=== PATIENT | female | born 1970 ===

== ENCOUNTER 2017-07-27 07:25 | Day surgery (SDC) | payer OTHER ==
[~2017-07-27 07:25] MED LIST: EPINEPHrine 1:1000 Nasal Sol(30mL) ONE; Lidocaine/Epinephrine 1% 1:100000 10 ML IJ ONE; ceFAZolin 1 gm in NS 1 GM/100 ML BAG IVPB ONE
[2017-07-27] MEDS ORDERED: Acetaminophen-Codeine 300/30 mg Tab PO PRN (08:40)
[2017-07-27] MEDS ORDERED: Dextrose 5%/0.45% NS 1,000 ML IV SCH (08:45)
[2017-07-27] MEDS ORDERED: Midazolam 2 MG/2 ML VIAL ONE (09:49)
[2017-07-27] MEDS ORDERED: Propofol 10 mg/ml Inj (20 ML) ONE (09:49)
[2017-07-27] MEDS ORDERED: Lactated Ringer's 1,000 ML IV ONE (09:50)
[2017-07-27] MEDS ORDERED: HYDROmorphone 0.5 mg/0.5 ml ISec IVP PRN (11:37)
[2017-07-27 12:47] VITALS: RESP 18
[2017-07-27 14:23] VITALS: BP 116/62; PULSE 89; TEMP 97.8; O2SAT 96
--- NOTE | 2017-07-27 22:35 | OP ---
PROCEDURE DATE: 07/27/2017 PREOPERATIVE DIAGNOSES: Sinusitis and large turbinates. POSTOPERATIVE DIAGNOSES: Sinusitis and large turbinates. PROCEDURE: Endoscopic bilateral maxillary antrostomy, endoscopic bilateral ethmoidectomy, endoscopic bilateral sphenoidotomy, endoscopic bilateral inferior turbinate reduction. SURGEON: Alberto Linares MD SIGNIFICANT FINDINGS: There were large turbinates and maxillary antrum stenosed on both sides, sinusitis changes noted in the ethmoid sinuses on both sides, sphenoid antrum stenosed on both sides. DESCRIPTION OF PROCEDURE: The patient was brought into the room, placed in supine position, anesthesia was initiated through an ET tube. Navigation was set up and used throughout the case in order to ensure that the skull base and orbit were not entered. Adrenaline-soaked pledgets were inserted into the nasal cavity, remained there for 5 minutes and removed. The patient was draped in the usual manner. A 0-degree scope was inserted into the nasal cavity. The inferior turbinates were noted to be enlarged and reduced in size using scissors going from inferior to superior, anterior to posterior direction on both sides; first on the right, then on the left. Bleeding was controlled using suction cautery on both sides. Attention was turned to the left. The middle turbinate was injected with lidocaine with epinephrine and medialized. The uncinate process was medialized using a Correll elevator and removed using forceps. A debrider was used to enter the ethmoid bulla inferomedially, going posteriorly to the basal lamella, superiorly and anteriorly until the ethmoid bulla was removed. The basal lamella was entered. Posterior ethmoid cells were entered and opened. The skull base was identified and followed anteriorly all the way to the area of the anterior ethmoid air cells. A curved suction hooked up to navigation was used to locate the maxillary antrum, which was noted to be stenosed and opened using forceps. The sphenoid antrum was also noted and opened using forceps. It was noted to be stenosed. Attention was turned to the other side. The middle turbinate was injected with lidocaine with epinephrine and medialized. The uncinate process was medialized using a Correll elevator and removed using forceps. A debrider was used to enter the ethmoid bulla inferomedially, going posteriorly to the basal lamella, then superiorly and anteriorly until the ethmoid bulla was removed. The basal lamella was entered. Posterior ethmoid cells were entered and opened. Skull base was identified and followed anteriorly all the way to the area of anterior ethmoid air cells. A curved suction hooked up to navigation was used to locate the maxillary antrum, which was noted to be stenosed and opened using forceps. The sphenoid antrum was also noted to be stenosed and opened using forceps. Bleeding was controlled on both sides using a suction cautery and adrenaline-soaked pledgets. Stents were placed. The patient was taken off anesthesia and taken to recovery room in a stable manner. Alberto Linares MD
== END 2017-07-27 14:22 | disposition home or self-care (01) ==
LOC: C.SDS 07:25
PROVIDERS: ATTEND Otolaryngology
DX: J34.3 Hypertrophy of nasal turbinates (principal); J32.2 Chronic ethmoidal sinusitis; E03.9 Hypothyroidism, unspecified
CPT/HCPCS: 30130; 31254; 31256; 31287; 88304; J0690; J1170; J2250; J2704; J3010; J7120

== ENCOUNTER 2017-08-04 19:27 | Emergency (ER) | payer OTHER ==
[2017-08-04 19:48] VITALS: O2SAT 97
--- NOTE | 2017-08-04 20:42 | C.PDOC ---
History Of Present Illness 47 year old female presents to the ER s/p sinus surgery on on 07/27/17 on augmentin and prednisone, presents to the ER with a complaint of left neck/ shoulder stiffness and pain after having a syncopal yesterday. Patient states she felt lightheaded and dizzy yesterday, with a pressure and numbness to the face; she then felt numbness come over her whole body, began having palpitations , and felt like her equilibrium was off balance. Patient reports she later was walking up some steps and had a brief episode of LOC that lasted less than a minute during which she hit her left shoulder. Today, patient woke up with stiffness to the left neck and left shoulder, and pain to the left shoulder. Patient notes since she has been on the medications she has not been feeling right. She feels as if her vision is blurry. Denies weakness, headache, nausea, or vomiting. Time Seen by Provider: 08/04/17 20:14 Chief Complaint (Nursing): Dizziness/Lightheaded History Per: Patient History/Exam Limitations: no limitations Onset/Duration Of Symptoms: Hrs Current Symptoms Are (Timing): Still Present Number Of Syncopal Episodes: 1 Activity At Onset Of Symptoms: Walking (up stairs) Associated Symptoms Preceding Syncopal Episode: Other ([place] off balance) Seizure Or Post-ictal Symptoms: None Fall Associated With With Symptoms: Yes, Positive Injury Recent travel outside of the [place]: No - Symptoms Of CVA Associated Symptoms: denies: Impaired Speech, Seizure Activity, New Vision Deficit(Left), New Vision Deficit(Right), Decreased Ability To Walk, New Confusion Past Medical History Reviewed: Historical Data, Nursing Documentation, Vital Signs Vital Signs: Last Vital Signs Temp 98.4 F 08/04/17 19:38 Pulse 79 08/04/17 19:38 Resp 20 08/04/17 19:38 BP 131/74 08/04/17 19:38 Pulse Ox 97 08/04/17 23:50 - Medical History PMH: Anemia (WAS ON IRON SUPPLEMENT-NO LONGER NEEDED), Gastritis, Hypothyroidism Surgical History: Endoscopy Family History: States: Unknown Family Hx - Social History Hx Alcohol Use: No Hx Substance Use: No Review Of Systems Constitutional: Negative for: Fever, Chills Gastrointestinal: Negative for: Nausea, Vomiting Musculoskeletal: Positive for: Neck Pain, Shoulder Pain Neurological: Negative for: Weakness, Headache, Dizziness Physical Exam - Physical Exam Appears: Non-toxic Skin: Warm, Dry Head: Atraumatic, Normacephalic Eye(s): bilateral: Normal Inspection, PERRL, EOMI Oral Mucosa: Moist Neck: Paracervical Tenderness (Left), Supple Chest: Symmetrical, No Tenderness Cardiovascular: Rhythm Regular Respiratory: Normal Breath Sounds, No Rales, No Rhonchi, No Wheezing Gastrointestinal/Abdominal: Soft, No Tenderness Back: No Vertebral Tenderness, Paraspinal Tenderness (Left trapezius and left scapula) Extremity: Normal ROM (x4), No Deformity, No Swelling, Other (Ecchymosis and tenderness to left proximal humerous.) Pulses: Left Radial: Normal, Right Radial: Normal Neurological/Psych: Oriented x3, Normal Speech, Normal Cranial Nerves, Normal Motor, Normal Sensation Gait: Steady ED Course And Treatment - Laboratory Results Result Diagrams: 08/04/17 20:37 08/04/17 20:37 Lab Interpretation: Abnormal (WBC 16.7 with left shift, Glucose 184) ECG: Interpreted By Me ECG Rhythm: Sinus Rhythm ECG Interpretation: Normal O2 Sat by Pulse Oximetry: 97 (Room air) Pulse Ox Interpretation: Normal - Other Rad C spine X-Ray: Interpreted by Me Interpretation: Normal curvature, No evidence of fracture or dislocation. Normal soft tissues left shoulder X-Ray: Interpreted by Me Interpretation: No evidence of fracture or dislocation - CT Scan/US CT Head Other Rad Studies (CT/US): Read By Radiologist, Radiology Report Reviewed CT/US Interpretation: EXAM: CT Head Without Intravenous Contrast. EXAM DATE/ TIME: Exam ordered 08/04/2017 8:31 PM. CLINICAL HISTORY: 47 years old, female ; Signs and symptoms; Syncope and collapse. TECHNIQUE: Axial computed tomography images of the head/brain without intravenous contrast. All CT scans at. this facility use one or more dose reduction techniques, viz.: automated exposure control; ma/kV. adjustment per patient size (including targeted exams where dose is matched to indication; i.e. head);. or iterative reconstruction technique. COMPARISON: No relevant prior studies available. FINDINGS: Brain : Unremarkable. No hemorrhage. No significant white matter disease. No edema. Ventricles: Unremarkable. No ventriculomegaly. Bones/joints: Unremarkable. No acute fracture. Soft tissues: Unremarkable. Sinuses: Air-fluid level is seen in the sphenoid sinus. Mucosal thickening is noted in the ethmoid and. maxillary sinuses. Mastoid air cells: Unremarkable as visualized. No mastoid effusion. IMPRESSION: 1. No acute findings in the brain. 2. Acute sinusitis in the sphenoid sinuses. Chronic sinusitis is in the maxillary and ethmoid sinuses. Progress Note: CT head, blood work, EKG, cervical spine x-ray, left shoulder x- ray, and urinalysis ordered. 10:30 Patient c/o pain in the left shoulder. Toradol 30mg IV given. Reevaluation Time: 00:18 Reassessment Condition: Improved Disposition Counseled Patient/Family Regarding: Studies Performed, Diagnosis, Need For Followup, Rx Given - Disposition Referrals: Alberto Linares MD [Staff Provider] - Disposition: HOME/ ROUTINE Disposition Time: 00:24 Condition: IMPROVED Additional Instructions: Take Ibuprophen every 6 hours for pain if needed. Use a topical rub like Icy Hot or Bengay on her neck and shoulders. Take Mucinex and Sudafed for sinus congestion. Prescriptions: Cyclobenzaprine [Cyclobenzaprine HCl] 10 mg PO TID PRN #10 tab PRN Reason: Muscle Spasm Instructions: Sinusitis, Adult (DC), Muscle Strain (DC), Contusion (DC) Forms: [employer] (Russian) - Clinical Impression Clinical Impression: Sinusitis, Contusion of shoulder, left, Muscle strain - Scribe Statement The provider has reviewed the documentation as recorded by the [place] Miles All medical record entries made by the Scribe were at my direction and personally dictated by me. I have reviewed the chart and agree that the record accurately reflects my personal performance of the history, physical exam, medical decision making, and the department course for this patient. I have also personally directed, reviewed, and agree with the discharge instructions and disposition.
[2017-08-04 20:46] LABS: BASO % 0.1 % (0.0-2.0); HEMOGLOBIN 12.5 g/dL (11.0-16.0); LYMPH # 1.9 K/uL (1.0-4.3); LYMPH % 11.1 % (20.0-40.0); MEAN CELL VOLUME 80.8 fL (81.0-99.0); MEAN CORPUSCULAR HEMOGLOBIN 27.1 pg (27.0-31.0); MEAN CORPUSCULAR HGB CONC 33.5 g/dL (33.0-37.0); MEAN PLATELET VOLUME 7.7 fL (7.2-11.7); MONO # 0.9 K/uL (0.0-0.8); MONO % 5.6 % (0.0-10.0); NEUT # 13.9 K/uL (1.8-7.0); NEUT % 83.2 % (50.0-75.0); RBC 4.61 Mil/uL (3.80-5.20); RED CELL DISTRIBUTION WIDTH 14.5 % (11.5-14.5); WHITE BLOOD COUNT 16.7 K/uL (4.8-10.8)
[2017-08-04 20:59] LABS: ALB/GLOB RATIO 1.1 (1.0-2.1); ALBUMIN 3.5 g/dL (3.5-5.0); ALT/SGPT 21 U/L (9-52); AST/SGOT 22 U/L (14-36); BLOOD UREA NITROGEN 15 mg/dL (7-17); CALCIUM 8.4 mg/dl (8.6-10.4); GFR AFRICAN-AMERICAN > 60; GFR NON-AFRICAN AMERICAN > 60
--- NOTE | 2017-08-04 21:59 | CT ---
EXAM: CT Head Without Intravenous Contrast EXAM DATE/TIME: Exam ordered 08/04/2017 8:31 PM CLINICAL HISTORY: 47 years old, female; Signs and symptoms; Syncope and collapse TECHNIQUE: Axial computed tomography images of the head/brain without intravenous contrast. All CT scans at this facility use one or more dose reduction techniques, viz.: automated exposure control; ma/kV adjustment per patient size (including targeted exams where dose is matched to indication; i.e. head); or iterative reconstruction technique. COMPARISON: No relevant prior studies available. FINDINGS: Brain: Unremarkable. No hemorrhage. No significant white matter disease. No edema. Ventricles: Unremarkable. No ventriculomegaly. Bones/joints: Unremarkable. No acute fracture. Soft tissues: Unremarkable. Sinuses: Air-fluid level is seen in the sphenoid sinus. Mucosal thickening is noted in the ethmoid and maxillary sinuses. Mastoid air cells: Unremarkable as visualized. No mastoid effusion. IMPRESSION: 1. No acute findings in the brain. 2. Acute sinusitis in the sphenoid sinuses. Chronic sinusitis is in the maxillary and ethmoid sinuses.
[2017-08-05 01:11] VITALS: BP 122/81; PULSE 68; RESP 22; TEMP 98.9
--- NOTE | 2017-08-05 08:29 | RAD ---
PROCEDURE: Cervical Spine Radiographs. HISTORY: Pain. COMPARISON: None. FINDINGS: BONES: Alignment maintained. No fracture. Dens Intact. DISC SPACES: Mild narrowing of the C5-6 intervertebral disc space consistent with early degenerative disc disease. The remaining intervertebral disc spaces are maintained in height. SOFT TISSUES: Normal. No prevertebral soft tissue swelling. OTHER FINDINGS: None. IMPRESSION: Mild degenerative disc disease at C5-6. Otherwise unremarkable examination.
--- NOTE | 2017-08-05 08:30 | RAD ---
PROCEDURE: Radiographs of the Left Shoulder HISTORY: fall COMPARISON: No prior. FINDINGS: BONES: Normal. No fracture. JOINTS: Normal. Glenohumeral and acromioclavicular joints preserved. No osteoarthritis. SOFT TISSUES: Normal. OTHER FINDINGS: None. IMPRESSION: Normal radiographs of the left shoulder.
--- NOTE | 2017-08-06 22:11 | CARD ---
APPROVED REPORT EKG Measurement Heart [id number] VT [id number] <Conclusion> Normal sinus rhythm Normal ECG
== END 2017-08-05 01:05 | disposition home or self-care (01) ==
LOC: C.ER 19:27
DX: S16.1XXA Strain of muscle, fascia and tendon at neck level, initial encounter (principal); S40.012A Contusion of left shoulder, initial encounter; W19.XXXA Unspecified fall, initial encounter; J32.9 Chronic sinusitis, unspecified
CPT/HCPCS: 70450; 72040; 73030; 80053; 85025; 93005; 96374; 99285; J1885

== ENCOUNTER 2017-09-28 21:09 | Emergency (ER) | payer OTHER ==
[2017-09-28 21:36] VITALS: RESP 20; TEMP 98.9
[2017-09-28] MEDS ORDERED: Sodium Chloride 0.9% 1,000 ML IV ONE (21:44)
--- NOTE | 2017-09-28 22:00 | C.PDOC ---
History Of Present Illness 47 year old female complains of left ear pain for 5 days. she reports sinus infection for over one week, taking Augmentin for 7 days and sees no significant improvement. She reports having left sided pressure pain that radiates to ear, but now ear pain is worsening and feels this intense pressure and pulsating around ear and head. She states her jaw is hurting too. She has not taken any pain relievers. Denies any fever, drainage, dizziness, hearing impairment. Time Seen by Provider: 09/28/17 21:36 Chief Complaint (Nursing): ENT Problem History Per: Patient History/Exam Limitations: None Onset/Duration Of Symptoms: Days Current Symptoms Are (Timing): Still Present Symptoms Have Been: Continuous Past Medical History Reviewed: Historical Data, Nursing Documentation, Vital Signs Vital Signs: Last Vital Signs Temp 98.9 F 09/28/17 21:33 Pulse 73 09/29/17 01:37 Resp 20 09/29/17 01:37 BP 112/62 09/29/17 01:37 Pulse Ox 100 09/29/17 01:37 - Medical History PMH: Anemia (WAS ON IRON SUPPLEMENT-NO LONGER NEEDED), Gastritis, Hypothyroidism Surgical History: Endoscopy Family History: States: Unknown Family Hx - Social History Hx Alcohol Use: No Hx Substance Use: No Review Of Systems Constitutional: Negative for: Fever, Chills ENT: Positive for: Ear Pain, Other (Jaw pain). Negative for: Throat Pain Respiratory: Negative for: Cough Gastrointestinal: Negative for: Nausea, Vomiting Physical Exam - Physical Exam Appears: Non-toxic, No Acute Distress Skin: Normal Color, Warm, Dry Head: Atraumatic, Normacephalic Eye(s): bilateral: Normal Inspection Ear(s): Left: Other (Left TM mildly erythematous and dull, tenderness to left postauricular region and mastoid, no swelling, bulging or erythema), Right: Normal Nose: Normal Oral Mucosa: Moist Throat: Normal, No Erythema, No Exudate Neck: Normal, Supple Chest: Symmetrical, No Tenderness Cardiovascular: Rhythm Regular Respiratory: Normal Breath Sounds, No Rales, No Rhonchi, No Wheezing Neurological/Psych: Oriented x3, Normal Speech ED Course And Treatment - Laboratory Results Result Diagrams: 09/28/17 22:07 09/28/17 22:07 O2 Sat by Pulse Oximetry: 96 (Room air) Pulse Ox Interpretation: Normal - CT Scan/US CT of mastoids Other Rad Studies (CT/US): Read By Radiologist, Radiology Report Reviewed CT/US Interpretation: EXAM: CT Orbits, Sella, Posterior Fossa or Auditory System Without Intravenous Contrast. CLINICAL HISTORY: 47 years old, female; Pain; Headache and other: Ear pain; Patient HX: 2-10-18 sinuses; Additional. info: Left ear and head pain. TECHNIQUE: Axial computed tomography images of the orbits, sella, posterior fossa or auditory system without. intravenous contrast. All CT scans at this facility use one or more dose reduction techniques, viz.: automated exposure control; ma/kV adjustment per patient size (including targeted exams where. dose is matched to indication; i.e. head) ; or iterative reconstruction technique. COMPARISON: No relevant prior studies available. FINDINGS: Sella: Unremarkable. Mastoid air cells: Unremarkable as visualized. No mastoid effusion. Auditory system: There is soft tissue present within the left middle ear cavity with an inferior tympanic. recess medial aspect. Minimal fluid or soft tissues also seen on the right middle ear cavity inferior. margin but to a lesser extent compared to the left. Accessory ossicles are normal. No erosive. changes. Bones/joints: No acute fracture. Soft tissues: Unremarkable. No signs of inflammation. Sinuses: There is mucosal thickening and fluid within the maxillary sinuses and ethmoids. Fluid is. also present within the sphenoid sinuses right more than left with mucosal thickening. Brain: Unremarkable as visualized. IMPRESSION: Bilateral mild or small middle ear cavity nonspecific fluid or soft tissue which could be associated. with otitis media or cholesteatoma. Findings are more pronounced on the left. However no evidence of acute mastoiditis or other suspicious acute abnormalities. In relation to the sinus there are changes reminiscent of acute or acute chronic pansinusitis. No signs. of soft tissue infection. Medical Decision Making Medical Decision Making: Plan: * Blood work * Urinalysis * CT of Mastoids * IV fluids * Toradol Labs reviewed, no leukocytosis bands or shift. Hypokalemia, ordered oral potassium. CT results: Bilateral mild or small middle ear cavity nonspecific fluid or soft tissue which could be associated with otitis media or cholesteatoma. Findings are more pronounced on the left. However no evidence of acute mastoiditis or other suspicious acute abnormalities. In relation to the sinus there are changes reminiscent of acute or acute chronic pansinusitis. No signs of soft tissue infection. [address] Linares to discuss case and results. Recommends discharge with medrol dose pack and will see patient in his office Patient re-evaluated was resting supine on stretcher. She reports feeling slightly better. She has no fever, nuchal rigidity, dizziness or neuro deficits. I explained results and provide copy of report. I advised on plan for discharge with Rx Medrol dose pack and to follow up. She agrees with plan and feels comfortable going home Disposition Counseled Patient/Family Regarding: Diagnosis, Need For Followup, Rx Given - Disposition Referrals: Alberto Linares MD [Staff Provider] - Disposition: HOME/ ROUTINE Disposition Time: 01:30 Condition: GOOD Additional Instructions: Please follow up with DR Linares in his office Take medications as prescribed Por favor, siga con DR Linares en tanner oficina Maddie medicamentos segn lo prescrito Prescriptions: Ibuprofen [Motrin] 600 mg PO Q8 #30 tab Methylprednisolone [Medrol Dose Pack (21 tabs)] 4 mg PO DAILY #21 mg Instructions: Sinusitis, Adult (DC) Forms: [employer] (Puerto Rican) Print Language: SOUTH SUDANESE - POA Present On Arrival: None - Clinical Impression Clinical Impression: Sinusitis, Otitis media - PA / AUTO SERVICE ADVISOR / Resident Statement MD/DO has reviewed & agrees with the documentation as recorded. - Scribe Statement The provider has reviewed the documentation as recorded by the Scribe Tony Miles All medical record entries made by the Scribe were at my direction and personally dictated by me. I have reviewed the chart and agree that the record accurately reflects my personal performance of the history, physical exam, medical decision making, and the department course for this patient. I have also personally directed, reviewed, and agree with the discharge instructions and disposition.
[2017-09-28] MEDS ORDERED: Sodium Chloride 0.9% 1,000 ML ONE (22:04)
[2017-09-28 22:15] LABS: BASO # 0.1 K/uL (0.0-0.2); BASO % 0.8 % (0.0-2.0); EOS # 0.2 K/uL (0.0-0.7); EOS % 2.5 % (0.0-4.0); HEMOGLOBIN 11.8 g/dL (11.0-16.0); LYMPH # 2.8 K/uL (1.0-4.3); LYMPH % 33.2 % (20.0-40.0); MEAN CELL VOLUME 77.4 fL (81.0-99.0); MEAN CORPUSCULAR HEMOGLOBIN 26.3 pg (27.0-31.0); MEAN PLATELET VOLUME 7.4 fL (7.2-11.7); MONO # 0.7 K/uL (0.0-0.8); MONO % 8.1 % (0.0-10.0); NEUT # 4.6 K/uL (1.8-7.0); NEUT % 55.4 % (50.0-75.0); RBC 4.47 Mil/uL (3.80-5.20); RED CELL DISTRIBUTION WIDTH 15.8 % (11.5-14.5); WHITE BLOOD COUNT 8.4 K/uL (4.8-10.8)
[2017-09-28 22:19] LABS: SQUAMOUS EPITHIAL 1 /hpf (0-5); URINE BACTERIA RARE (<OCC); URINE BILIRUBIN NEGATIVE (NEGATIVE); URINE BLOOD 3+ (NEGATIVE); URINE GLUCOSE (UA) NORMAL (Normal); URINE LEUKOCYTE ESTERASE NEG Leu/uL (Negative); URINE PROTEIN NEGATIVE (NEGATIVE); URINE UROBILINOGEN NORMAL mg/dL (0.2-1.0)
[2017-09-28 22:20] LABS: URINE CLARITY Hazy (Clear); URINE COLOR LIGHT RED (YELLOW)
[2017-09-28 22:25] LABS: ALB/GLOB RATIO 1.4 (1.0-2.1); ALBUMIN 4.2 g/dL (3.5-5.0); ALT/SGPT 34 U/L (9-52); AST/SGOT 26 U/L (14-36); BLOOD UREA NITROGEN 10 mg/dL (7-17); CALCIUM 8.9 mg/dl (8.6-10.4); GFR AFRICAN-AMERICAN > 60; GFR NON-AFRICAN AMERICAN > 60
[2017-09-28] MEDS ORDERED: Potassium Chloride 20 mEq ER Tab PO STA (22:28)
[2017-09-28] MEDS ORDERED: Potassium Chloride 20 mEq ER Tab PO ONE (22:56)
[2017-09-29 01:38] VITALS: BP 112/62; PULSE 73
[2017-09-29 02:06] VITALS: O2SAT 96
--- NOTE | 2017-09-29 11:09 | CT ---
PROCEDURE: CT scan temporal bones 09/28/2017 HISTORY: Left ear and head pain COMPARISON: Correlation made with prior CT scan brain 08/04/2017 TECHNIQUE: High resolution axial images of the temporal bones were obtained. Coronal and sagittal reformats were generated. Radiation dose: Total exam DLP = 922.05 mGy-cm. This CT exam was performed using one or more of the following dose reduction techniques: Automated exposure control, adjustment of the mA and/or kV according to patient size, and/or use of iterative reconstruction technique. FINDINGS: RIGHT TEMPORAL BONE: RIGHT MIDDLE EAR: Minimal soft tissue density seen in the inferior aspect right middle ear canal adjacent to the inferior margin of the tympanic membrane which may represent a small amount fluid or granulation tissue related to mild otitis media. No obvious destructive changes seen at this time to suggest cholesteatoma. RIGHT INNER EAR: Cochlea: Normal. Semicircular canals: Normal. RIGHT MASTOID AIR CELLS: Normal. RIGHT INTERNAL AUDITORY CANAL: Normal. RIGHT EXTERNAL AUDITORY CANAL: Normal. RIGHT VESTIBULAR AND COCHLEAR AQUEDUCT: Normal. OTHER FINDINGS: None. LEFT TEMPORAL BONE: LEFT MIDDLE EAR: Small amount of soft tissue is present within the left middle ear canal abutting the tympanic membrane extending superiorly reaching the inferior margin of the scutum and ossicular chain. Findings may represent sequela of small amount of fluid and/or granulation tissue related to mild otitis media. LEFT INNER EAR: Cochlea: Normal. Semicircular canals: Normal. LEFT MASTOID AIR CELLS: Normal. LEFT INTERNAL AUDITORY CANAL: Normal. LEFT EXTERNAL AUDITORY CANAL: Normal. LEFT VESTIBULAR AND COCHLEAR AQUEDUCT: Normal. OTHER FINDINGS: None. IMPRESSION: Possible minor sequela of otitis media and/or granulation tissue both middle ear canals left greater than right. . There are no bony destructive changes seen to suggest cholesteatoma
== END 2017-09-29 01:37 | disposition home or self-care (01) ==
LOC: C.ER 21:09
DX: H66.90 Otitis media, unspecified, unspecified ear (principal); J32.9 Chronic sinusitis, unspecified
CPT/HCPCS: 70480; 80053; 81001; 85025; 96361; 96374; 99284; J1885; J7030